=== PATIENT | male | born 1960 | race Hispanic/Latino ===

== ENCOUNTER → 2018-09-12 | Outpatient (CLI) | payer BC ==
--- NOTE | 2018-09-12 15:35 | Diagnostic Imaging Report ---
Right knee MRI without contrast. History: Knee pain. Internal drainage. Trauma Comparison: None. Technique: Multiplanar multi-sequence MRI of the knee without contrast. Findings: Medial compartment: Mild degeneration and fraying of the medial meniscus at the posterior periphery. No meniscal tear is seen. There is a mild medial meniscocapsular sprain and a mild sprain of the medial collateral ligament. The majority of the fibers are intact. The medial compartmental articular cartilage surfaces are intact. There is minimal bone marrow edema at the periphery of the medial tibial plateau with an adjacent small osteophyte. Lateral compartment: No meniscal tear or cartilage abnormality. The LCL complex is normal. Intercondylar notch: The ACL and PCL are intact. Patellofemoral compartment: Focal bone marrow edema at the lateral aspect of the patella with partial tearing of the adjacent lateral patellar retinacular tissues and a mild amount of adjacent soft tissue edema. This is best seen on axial image 12. Mild articular cartilage fraying and fissuring in the patellofemoral compartment. Extensor mechanism: The quadriceps and patellar tendons are normal. Other findings: There is a joint effusion and synovitis. There is no acute fracture, subluxation or avascular necrosis. IMPRESSION: Focal bone marrow edema at the lateral aspect of the patella with partial tearing of the adjacent lateral patellar retinacular tissues and a mild amount of adjacent soft tissue edema. This is likely due to a contusion. No patellar dislocation. Mild medial meniscocapsular sprain and mild sprain of the medial collateral ligament. There is mild bone marrow edema at the periphery of the medial tibial plateau could be due to a contusion. Signed by: Dr. Rafael Schroeder M.D. on 09/12/2018 3:31 PM
== END ==
LOC: MRI 14:31
PROVIDERS: ATTEND Specialist
DX: M23.91 Unspecified internal derangement of right knee (principal)

== ENCOUNTER 2021-09-30 14:11 | Emergency (ER) | payer BC ==
[~2021-09-30] VITALS: Ht 172.7 cm; Wt 79.4 kg
[2021-09-30] MEDS ORDERED: ACETAMINOPHEN 325 MG TAB PO ONE (14:30)
[2021-09-30] MEDS ORDERED: ACETAMINOPHEN500 MG PO (14:50)
[2021-09-30] MEDS ORDERED: AZITHROMYCIN250 MG PO (14:50)
[2021-09-30] MEDS ORDERED: [UNRECOGNIZED DRUG - OTHER] (14:50)
[2021-09-30] MEDS ORDERED: Paxlovid PO (14:50)
[2021-09-30 15:22] VITALS: BP 145/75
== END 2021-09-30 15:37 | disposition home or self-care (01) ==
LOC: FSED 14:12
DX: R50.9 Fever, unspecified (principal); U07.1 COVID-19; R05.9 Cough, unspecified; R00.0 Tachycardia, unspecified; Z71.89 Other specified counseling; I10 Essential (primary) hypertension; E11.9 Type 2 diabetes mellitus without complications; R94.31 Abnormal electrocardiogram [ECG] [EKG]
CPT/HCPCS: 80053; 81003; 82553; 84484; 85025; 87400; 93005; 99284; U0002